=== PATIENT | male | born 1990 | race Caucasian/White ===

== ENCOUNTER 2018-12-13 14:24 | Emergency (ER) | payer OTHER ==
--- NOTE | 2018-12-13 15:25 | EDPHY ---
H & P Stated Complaint: lifting at gym, felt pop in lower back Time Seen by Provider: 12/13/18 15:18 HPI/ROS: CHIEF COMPLAINT: Low back pain with radiation HISTORY OF PRESENT ILLNESS: The patient is a 28-year-old man who was lifting at the gym just prior to arrival. He felt a pop in his lumbar spine and had pain to his right gluteus and right thigh. He states the also has some pain in the dorsum of his right foot. No weakness or numbness. He is able to ambulate but with pain. No recent fevers or infections. No bowel or bladder abnormalities. Severity: Moderate Modifying factors: Worsened by movement REVIEW OF SYSTEMS: Constitutional: denies: chills, fever, recent illness, recent injury EENTM: denies: blurred vision, double vision, nose congestion Respiratory: denies: cough, shortness of breath Cardiac: denies: chest pain, irregular heart rate, lightheadedness, palpitations Gastrointestinal/Abdominal: denies: abdominal pain, diarrhea, nausea, vomiting, blood streaked stools Genitourinary: denies: dysuria, frequency, hematuria, pain Musculoskeletal: See HPI Skin: denies: lesions, rash, jaundice, bruising Neurological: denies: headache, numbness, paresthesia, tingling, dizziness, weakness Hematologic/Lymphatic: denies: blood clots, easy bleeding, easy bruising Immunologic/allergic: denies: HIV/AIDS, transplant 10 systems reviewed and negative except as noted EXAM: GENERAL: Well-appearing, well-nourished and in no acute distress. HEAD: Atraumatic, normocephalic. EYES: Pupils equal round and reactive to light, extraocular movements intact, sclera anicteric, conjunctiva are normal. ENT: TMs normal, nares patent, oropharynx clear without exudates. Moist mucous membranes. NECK: Normal range of motion, supple without lymphadenopathy or JVD. LUNGS: Breath sounds clear to auscultation bilaterally and equal. No wheezes rales or rhonchi. HEART: Regular rate and rhythm without murmurs, rubs or gallops. ABDOMEN: Soft, nontender, normoactive bowel sounds. No guarding, no rebound. No masses appreciated. BACK: Lumbar pain, central, unable to differentiate bony verses muscular. EXTREMITIES: Normal range of motion, no pitting or edema. No clubbing or cyanosis. NEUROLOGICAL: Cranial nerves II through XII grossly intact. Normal speech, normal gait. 5/5 strength, normal movement in all extremities, normal sensation , normal reflexes PSYCH: Normal mood, normal affect. SKIN: Warm, dry, normal turgor, no visible rashes or lesions. Source: Patient Exam Limitations: No limitations - Personal History Current Tetanus/Diphtheria Vaccine: Yes Current Tetanus Diphtheria and Acellular Pertussis (TDAP): Yes - Medical/Surgical History Hx Asthma: No Hx Chronic Respiratory Disease: No Hx Diabetes: No Hx Cardiac Disease: No Hx Renal Disease: No Hx Cirrhosis: No Hx Alcoholism: No Hx HIV/AIDS: No Hx Splenectomy or Spleen Trauma: No - Family History Significant Family History: No pertinent family hx - Social History Smoking Status: Never smoked Alcohol Use: None Constitutional: Initial Vital Signs Temperature (C) 37 C 12/13/18 14:37 Heart Rate 58 L 12/13/18 14:37 Respiratory Rate 14 12/13/18 14:37 Blood Pressure 127/67 H 12/13/18 14:37 O2 Sat (%) 98 12/13/18 14:37 O2 Delivery Mode Room Air Allergies/Adverse Reactions: No Known Allergies Allergy (Unverified 12/13/18 14:37) Home Medications: Medication Instructions Recorded Hydrocodone/APAP 5/325 [[place] 1 - 2 tab PO Q4H PRN #7 tab 12/13/18 5/325 (RX)] predniSONE 60 mg PO DAILY #15 tab 12/13/18 Medical Decision Making - Diagnostics Imaging Results: Imaging Impressions Lumbar Spine MRI 12/13/18 15:22 Impression: Multilevel degenerative disk and degenerative joint disease lumbar spine. Level of more significance is at L5-S1 where there is a right parasagittal protrusion with underlying broad-based annular bulge causing mild right lateral recess and mild to moderate right and mild left neural foraminal narrowing. Please see detailed description by level above. Results called and discussed with Neel Rivas on 12/13/2018 at 16:29. Imaging: Discussed imaging studies w/ banquet server on call Radiologist ED Course/Re-evaluation: 4:30 p.m. We had a lengthy discussion about his MRI results. He is able to ambulate in the room without difficulty. He declines pain medication. We discussed anti-inflammatories to take at home. I will give him a short burst of prednisone as well as Vicodin to take if needed. I will have him follow up with physical therapy as well as Neurosurgery. Differential Diagnosis: Partial list of the Differential diagnosis considered include but were not limited to; degenerative disc disease, radiculopathy, disc herniation and although unlikely based on the history and physical exam, I also considered cauda equina, spinal cord injury, infection, fracture. I discussed these differential diagnoses and the plan with the patient as well as the usual and expected course. The patient understands that the diagnosis is provisional and that in medicine we are not always correct and that further workup is often warranted. Usual and customary warnings were given. All of the patient's questions were answered. The patient was instructed to return to the emergency department should the symptoms at all worsen or return, otherwise to followup with the physician as we discussed. - Data Points Medications Given: Discontinued Medications Prednisone (Prednisone) 60 mg PO EDNOW ONE Stop: 12/13/18 16:37 Last Admin: 12/13/18 17:00 Dose: 60 mg Departure - Departure Disposition: Home, Routine, Self-Care Clinical Impression: Degenerative disc disease, lumbar, Lumbar disc herniation, Lumbar radiculopathy , right Condition: Fair Instructions: Sciatica (ED), Degenerative Disc Disease (ED) Referrals: NONE *PRIMARY CARE P,. [Primary Care Provider] - As per Instructions Soto Villasenor MD [Medical Doctor] - Follow Up Only If Needed Sincere Garcia PA [Physician New Car Inspector] - 2-3 days, call for appt. Prescriptions: Hydrocodone/APAP 5/325 [[place] 5/325 (RX)] 1 - 2 tab PO Q4H PRN #7 tab PRN Reason: Pain, Moderate predniSONE 60 mg PO DAILY #15 tab
[2018-12-13] MEDS ORDERED: predniSONE 20 MG TAB PO ONE (16:36)
[2018-12-13 17:15] VITALS: BP 121/78
== END 2018-12-13 17:14 | disposition home or self-care (01) ==
DX: M51.16 Intervertebral disc disorders with radiculopathy, lumbar region (principal); M51.27 Other intervertebral disc displacement, lumbosacral region; M46.96 Unspecified inflammatory spondylopathy, lumbar region
CPT/HCPCS: J7512